=== PATIENT | female | born 1955 | race Caucasian/White ===

== ENCOUNTER 2024-04-08 14:12 | Outpatient (CLI) | payer MEDICARE, OTHER | END 2024-04-08 14:13 | disposition home or self-care (01) | LOC: CSHMAMMO 14:12 | PROVIDERS: ATTEND Internal Medicine Rheumatology | DX: M81.0 Age-related osteoporosis without current pathological fracture (principal); M85.89 Other specified disorders of bone density and structure, multiple sites | CPT/HCPCS: 77080 ==

== ENCOUNTER 2024-04-19 14:43 | Outpatient (CLI) | payer MEDICARE, OTHER | END 2024-04-19 14:44 | disposition home or self-care (01) | LOC: CSHRAD 14:43 | PROVIDERS: ATTEND Internal Medicine Rheumatology | DX: M81.0 Age-related osteoporosis without current pathological fracture (principal); M47.814 Spondylosis without myelopathy or radiculopathy, thoracic region | CPT/HCPCS: 72072 ==